=== PATIENT | male | born 1935 | race Caucasian/White ===

== ENCOUNTER 2016-09-06 22:50 | Emergency (ER) | payer MEDICARE, BC ==
[~2016-09-06] VITALS: Ht 182.9 cm; Wt 99.8 kg
[2016-09-06 23:27] VITALS: BP 175/77
--- NOTE | 2016-09-06 23:27 | PHYS DOC ---
Adult General Chief Complaint Chief Complaint: FINGER INJURY HPI HPI Patient is a 81 year old female presents to the emergency department with complaints of left index finger injury. Patient reports that he was removing the side from a wheelchair when his finger caught in the pin and he avulsed the distal tip of the left index finger. His reports this occurred approximately 5 hours prior to arrival in the emergency department. She states they had difficulty controlling the bleeding. On arrival to the emergency department there is no evidence of bleeding. Review of Systems Review of Systems Musculoskeletal: Denies back pain or joint pain [] Integument: Avulsion distal tip index finger Current Medications Current Medications Current Medications Medications (Trade) Dose Ordered Sig/Rodney Start Time Stop Time Status Last Admin Dose Admin Cellulose 1 each 1X ONCE 09/06/16 23:45 09/06/16 23:46 Allergies Allergies Allergies Coded Allergies Type Severity Reaction Last Updated Verified Penicillins Allergy Intermediate 09/06/16 Yes tetracycline Allergy Intermediate 09/06/16 Yes Physical Exam Physical Exam Constitutional: Well developed, well nourished, no acute distress, non-toxic appearance. [] Skin: Left index finger, distal tip avulsed, no nail involvement.. There Is no active bleeding time exam. Patient has full range of motion without difficulty. Current Patient Data Vital Signs Vital Signs Date Time Temp Pulse Resp B/P (MAP) Pulse Ox O2 Delivery O2 Flow Rate FiO2 09/06/16 23:27 103 18 97 Room Air EKG EKG [] Radiology/Procedures Radiology/Procedures [] Course & Med Decision Making Course & Med Decision Making Left index finger x-ray reviewed by Dr. Neri Rao, emergency room physician. No acute changes. Pertinent Labs and Imaging studies reviewed. (See chart for details) Immunization up-to-date Left index finger wound cleansed with normal saline. Surgicel seal applied with tube gauze. Patient tolerated procedure well. [] Dragon Disclaimer Dragon Disclaimer This electronic medical record was generated, in whole or in part, using a voice recognition dictation system. Departure Departure Impression: Primary Impression: Avulsion of soft tissue Disposition: 01 HOME, SELF-CARE Condition: STABLE Referrals: KELLE ROTH Jr, MD (PCP) Patient Instructions: Laceration Care, Adult Scripts Acetaminophen With Codeine (TYLENOL WITH CODEINE #3 TABLET) 1 Each Tablet 1 TAB PO PRN Q6HRS Y for PAIN, #12 TAB Prov: SHANKAR,JUANCARLOS J [employer] 09/06/16 Cephalexin (KEFLEX) 500 Mg Capsule 1 CAP PO TID, #21 CAP Prov: JUANCARLOS CHAPARRO APRN 09/06/16 JUANCARLOS CHAPARRO APRN Sep 06, 2016 23:27
[2016-09-06] MEDS ORDERED: ACET-704 PO (23:36)
[2016-09-06] MEDS ORDERED: CEPH-264 PO (23:36)
[2016-09-06] MEDS ORDERED: SURGICEL HEMOSTAT 2X3 EACH. TP ONE (23:45)
--- NOTE | 2016-09-07 07:57 | RAD ---
Examination: 3 views of the left index finger History: History of evolution to the distal tip of the second digit Comparison: None available Findings: There is moderate degenerative changes identified in the metacarpophalangeal joint, interphalangeal joint of the second digit. There is minimal soft tissue avulsion of the distal tip of the second digit. No acute osseous findings. Impression: 1. No acute osseous findings. 2. Moderate degenerative changes metacarpophalangeal joint, interphalangeal joint of the second digit. 3. Minimal soft tissue with avulsion of the distal tip of the second digit.
== END 2016-09-06 23:58 | disposition home or self-care (01) ==
LOC: ER 22:50
DX: S61.301A Unspecified open wound of left index finger with damage to nail, initial encounter (principal); Z88.1 Allergy status to other antibiotic agents; Z88.0 Allergy status to penicillin; W23.0XXA Caught, crushed, jammed, or pinched between moving objects, initial encounter; Y93.89 Activity, other specified; Y99.8 Other external cause status; Y92.89 Other specified places as the place of occurrence of the external cause
CPT/HCPCS: 73140; 82962; 99284-25

== ENCOUNTER 2018-04-28 10:07 | Outpatient (CLI) | payer MEDICARE, BC ==
[2018-04-28] VITALS (7 sets, daily range): BP systolic 95–136; BP diastolic 42–61
[~2018-04-28] VITALS: Ht 182.9 cm; Wt 90.7 kg
[~2018-04-28 10:07] MED LIST: ACET-704 PO; ACET325T9 PO; APIX5TAB PO; ASPI325T11 PO; CEPH-264 PO; DOFE500C PO; FURO-69 PO; INSU100I11 SQ; INSU100I17 SQ; INSU300I SQ; LOSA-73 PO; METO25TA4 PO; OXYC5CAP PO; POLY17PO29 PO; POTA20TA82 PO; SIMV40TA3 PO; TAMS0.4C97 PO; TRAM50TA PO
[2018-04-28 10:48] LABS: BASO % 1 % (0-3); EOS # 0.3 x10^3/uL (0.0-0.7); EOS % 5 % (0-3); HEMATOCRIT 34.6 % (39.0-53.0); HEMOGLOBIN 11.2 g/dL (13.0-17.5); LYMPH # 0.8 x10^3/uL (1.0-4.8); LYMPH % 13 % (24-48); MEAN CORPUSCULAR HEMOGLOBIN 28 pg (25-35); MEAN CORPUSCULAR HGB CONC 33 g/dL (31-37); MEAN CORPUSCULAR VOLUME 88 fL (79-100); MONO # 0.6 x10^3/uL (0.0-1.1); MONO % 11 % (0-9); NEUT # 4.2 x10^3uL (1.8-7.7); NEUT % 70 % (31-73); PLATELET COUNT 207 x10^3/uL (140-400); RED BLOOD COUNT 3.95 x10^6/uL (4.30-5.70); RED CELL DISTRIBUTION WIDTH 16.5 % (11.5-14.5); WHITE BLOOD COUNT 5.9 x10^3/uL (4.0-11.0)
[2018-04-28 10:58] LABS: PROTHROMBIN TIME PATIENT 14.7 SEC (11.7-14.0)
[2018-04-28 11:14] LABS: CALCIUM 9.6 mg/dL (8.5-10.1); CREATININE 1.6 mg/dL (0.7-1.3); GFR 41.4
[2018-04-28 11:20] LABS: ALBUMIN 3.4 g/dL (3.4-5.0); ALBUMIN/GLOBULIN RATIO 0.9 (1.0-1.7); TOTAL BILIRUBIN 0.5 mg/dL (0.2-1.0); TOTAL PROTEIN 7.4 g/dL (6.4-8.2)
--- NOTE | 2018-04-28 13:36 | NUR ---
Discharge Note: NINA CHAPMAN Discharge instructions and discharge home medications reviewed with Patient and a copy given. All questions have been answered and understanding verbalized. The following instructions and handouts were given: thoracentesis Discontinued lines and drains: intact. Patient discharged to Home or Self Care withSpousevia Crutches/Walker
--- NOTE | 2018-04-28 13:39 | RAD ---
Ultrasound-guided left-sided thoracentesis 04/28/2018 1:35 PM Indication: Postoperative left-sided PLEURAL EFFUSION Procedure: Informed consent was obtained. A timeout procedure was performed. Sonographic evaluation of the left chest was performed demonstrating moderate pleural effusion. The left posterior chest was prepped and draped in sterile fashion. 1% lidocaine without epinephrine was administered for local anesthesia. Real-time ultrasonographic guidance was used in passing a 5 [place] catheter into the left pleural space. 1.8 5 L of serosanguineous pleural fluid was removed. The catheter was removed and pressure held to achieve hemostasis. A sterile dressing was applied. No immediate complications were identified. The patient tolerated the procedure well. Impression: Left sided ultrasound-guided thoracentesis
--- NOTE | 2018-04-28 13:46 | RAD ---
EXAM: Chest, single view. HISTORY: Thoracentesis. COMPARISON: 04/24/2018 FINDINGS: A frontal view of the chest is obtained. There has been interval decrease in a now small left pleural effusion status post thoracentesis. There is no pneumothorax. There is left basilar atelectasis. The possibility of superimposed left lower lobe interstitial infiltrate is not excluded. There is a suspected stable trace right pleural effusion with right basilar atelectasis. There is evidence of prior median sternotomy. The heart is normal in size. IMPRESSION: 1. Decrease in a now small left pleural effusion status post thoracentesis. There is no pneumothorax. 2. Stable trace right pleural effusion and bilateral basilar atelectasis. The possibility of left lower lobe interstitial infiltrate is not excluded. Electronically signed by: Judith Palencia MD (04/28/2018 1:44 PM) [facility]
== END 2018-04-28 13:38 | disposition home or self-care (01) ==
LOC: INTRAD 10:07
PROVIDERS: ATTEND Thoracic Surgery (Cardiothoracic Vascular Surgery)
DX: J90 Pleural effusion, not elsewhere classified (principal); Z88.0 Allergy status to penicillin; Z88.1 Allergy status to other antibiotic agents; J98.11 Atelectasis
CPT/HCPCS: 32555; 36415; 71045; 80053; 85025; 85610

== ENCOUNTER → 2018-05-15 | Outpatient (CLI) | payer MEDICARE, BC ==
[2018-04-28 12:53] VITALS: BP 119/58
[~2018-05-15] MED LIST changes: +ASPI-630 PO; +FURO40TA4 PO
--- NOTE | 2018-05-15 14:27 | RAD ---
Chest, 2 views, 05/15/2018: HISTORY: Pleural effusion Comparison is made to a study from 04/28/2018. Sternal wires are present. The heart appears to be within normal limits in size. There is calcific plaquing the aorta. There is a moderate volume of left-sided pleural fluid which has increased since the previous study. There is underlying left basilar atelectasis. The right lung is clear. No right-sided pleural fluid is evident. Scattered degenerative changes are present in the spine. IMPRESSION: Increasing moderate-sized left pleural effusion. Electronically signed by: Seun Matthews MD (05/15/2018 2:24 PM) [facility]
== END | disposition home or self-care (01) ==
LOC: RAD 13:30
PROVIDERS: ATTEND Thoracic Surgery (Cardiothoracic Vascular Surgery)
DX: J90 Pleural effusion, not elsewhere classified (principal); J98.11 Atelectasis; M47.899 Other spondylosis, site unspecified
CPT/HCPCS: 71046

== ENCOUNTER 2018-05-18 08:20 | Outpatient (CLI) | payer MEDICARE, BC ==
[~2018-05-18] VITALS: Ht 182.9 cm; Wt 90.7 kg
[2018-05-18] VITALS (9 sets, daily range): BP systolic 95–123; BP diastolic 39–56
[~2018-05-18 08:20] MED LIST changes: -ASPI-630 PO; -FURO40TA4 PO
[2018-05-18 08:47] LABS: BASO # 0.1 x10^3/uL (0.0-0.2); BASO % 1 % (0-3); EOS # 0.3 x10^3/uL (0.0-0.7); EOS % 5 % (0-3); HEMATOCRIT 34.1 % (39.0-53.0); HEMOGLOBIN 10.8 g/dL (13.0-17.5); LYMPH % 17 % (24-48); MEAN CORPUSCULAR HEMOGLOBIN 27 pg (25-35); MEAN CORPUSCULAR HGB CONC 32 g/dL (31-37); MEAN CORPUSCULAR VOLUME 86 fL (79-100); MONO # 0.6 x10^3/uL (0.0-1.1); MONO % 11 % (0-9); NEUT # 3.9 x10^3uL (1.8-7.7); NEUT % 66 % (31-73); PLATELET COUNT 237 x10^3/uL (140-400); RED BLOOD COUNT 3.99 x10^6/uL (4.30-5.70); RED CELL DISTRIBUTION WIDTH 16.2 % (11.5-14.5); WHITE BLOOD COUNT 5.9 x10^3/uL (4.0-11.0)
[2018-05-18 08:56] LABS: PROTHROMBIN TIME PATIENT 14.7 SEC (11.7-14.0)
[2018-05-18] MEDS ORDERED: ASPI-630 PO (09:05)
--- NOTE | 2018-05-18 12:01 | NUR ---
Discharge Note: NINA CHAPMAN Discharge instructions and discharge home medications reviewed with Patient and a copy given. All questions have been answered and understanding verbalized. The following instructions and handouts were given: follow up with Dr. Bridges and Elliott Carbone tomorrlexie (05/19/18). Discontinued lines and drains: intact. Patient discharged to Home or Self Care with Spouse via Ambulated
--- NOTE | 2018-05-18 13:55 | RAD ---
Ultrasound-guided left-sided thoracentesis 05/18/2018 1:52 PM Indication: Left pleural effusion Procedure: Informed consent was obtained. A timeout procedure was performed. Sonographic evaluation of the left chest was performed demonstrating moderate pleural effusion. The left posterior chest was prepped and draped in sterile fashion. 1% lidocaine without epinephrine was administered for local anesthesia. Real-time ultrasonographic guidance was used in passing a 5 [place] catheter into the left pleural space. 1.9 L of serosanguineous pleural fluid was removed. Samples of fluid were sent to the lab for further evaluation per ordering physician request. The catheter was removed and pressure held to achieve hemostasis. A sterile dressing was applied. No immediate complications were identified. The patient tolerated the procedure well. Impression: Left sided ultrasound-guided thoracentesis
--- NOTE | 2018-05-18 16:35 | RAD ---
CHEST AP ONLY Clinical indications: POST THORACENTESIS COMPARISON: May 15, 2018. Findings: There is been significant decrease in size of left-sided pleural effusion which is small to moderate-sized in today's exam. No pneumothorax is evident. There is improved aeration of the left lung base. The heart size, pulmonary vasculature, mediastinum and both randal are stable. Impression: Decrease in size of left-sided pleural effusion after thoracentesis. No pneumothorax. Electronically signed by: Chinmay Weinberg MD (05/18/2018 4:32 PM) [place] [id number]
== END 2018-05-18 12:03 | disposition home or self-care (01) ==
LOC: INTRAD 08:20
PROVIDERS: ATTEND Thoracic Surgery (Cardiothoracic Vascular Surgery)
DX: J90 Pleural effusion, not elsewhere classified (principal); Z88.0 Allergy status to penicillin; Z88.1 Allergy status to other antibiotic agents; Z79.01 Long term (current) use of anticoagulants
CPT/HCPCS: 32555; 36415; 71045; 85025; 85610; 85730

== ENCOUNTER → 2018-06-05 | Outpatient (CLI) | payer MEDICARE, BC ==
[2018-05-18 11:30] VITALS: BP 108/48
[~2018-06-05] MED LIST changes: +ASPI-630 PO; +FURO40TA4 PO
--- NOTE | 2018-06-05 16:35 | RAD ---
Chest, 2 views, 06/05/2018: HISTORY: Follow-up pleural effusion Comparison is made to a study from 05/18/2018. There has been a previous median sternotomy. The heart size is normal. There is calcific plaquing of the aorta. No pulmonary infiltrate is seen. There is unchanged pleural thickening inferolaterally on the left compatible with residual pleural fluid versus scarring. No right-sided pleural fluid is seen. IMPRESSION: 1. Unchanged inferolateral pleural thickening on the left compatible with a small residual pleural effusion. 2. No new abnormality is detected. Electronically signed by: Seun Matthews MD (06/05/2018 4:32 PM) [facility]
== END | disposition home or self-care (01) ==
LOC: RAD 12:46
PROVIDERS: ATTEND Thoracic Surgery (Cardiothoracic Vascular Surgery)
DX: J90 Pleural effusion, not elsewhere classified (principal)
CPT/HCPCS: 71046

== ENCOUNTER 2018-07-14 09:59 | Outpatient (CLI) | payer MEDICARE, BC ==
[~2018-07-14] VITALS: Ht 182.9 cm; Wt 91.6 kg
[~2018-07-14 09:59] MED LIST changes: -FURO40TA4 PO
[2018-07-14 10:41] LABS: BASO % 1 % (0-3); EOS # 0.1 x10^3/uL (0.0-0.7); EOS % 2 % (0-3); HEMATOCRIT 36.5 % (39.0-53.0); LYMPH % 19 % (24-48); MEAN CORPUSCULAR HEMOGLOBIN 27 pg (25-35); MEAN CORPUSCULAR HGB CONC 33 g/dL (31-37); MEAN CORPUSCULAR VOLUME 82 fL (79-100); MONO # 0.6 x10^3/uL (0.0-1.1); MONO % 11 % (0-9); NEUT # 3.7 x10^3uL (1.8-7.7); NEUT % 67 % (31-73); PLATELET COUNT 153 x10^3/uL (140-400); RED BLOOD COUNT 4.43 x10^6/uL (4.30-5.70); RED CELL DISTRIBUTION WIDTH 18.9 % (11.5-14.5); WHITE BLOOD COUNT 5.5 x10^3/uL (4.0-11.0)
[2018-07-14 10:53] LABS: PROTHROMBIN TIME PATIENT 13.5 SEC (11.7-14.0)
[2018-07-14 10:55] VITALS: BP 95/59
[2018-07-14] MEDS ORDERED: FURO40TA4 PO (11:04)
[2018-07-14] MEDS ORDERED: METO25TA4 PO (11:04)
[2018-07-14 12:41] VITALS: BP 138/63
--- NOTE | 2018-07-14 13:15 | NUR ---
Pt return from vascular lab at 1300. Report received from Melissa HIGHTOWER. No fluid to drain from patient. Pt dressed and walked to outpatient entrance with family.
--- NOTE | 2018-07-15 07:56 | RAD ---
Limited ultrasound evaluation of the left chest 07/14/2018 Indication: Thoracentesis Discussion: Limited ultrasound evaluation of left chest demonstrates only scant pleural fluid, not readily amenable to thoracentesis. The amount of fluid appears to be significantly less than on most recent comparison imaging. Thoracentesis was therefore not performed. No other focal sonographic abnormality is seen. Impression: Only trace pleural effusion is seen. Thoracentesis was not performed
== END 2018-07-14 13:15 | disposition home or self-care (01) ==
LOC: INTRAD 09:59
PROVIDERS: ATTEND Internal Medicine Cardiovascular Disease
DX: J90 Pleural effusion, not elsewhere classified (principal); Z88.0 Allergy status to penicillin; Z88.1 Allergy status to other antibiotic agents
CPT/HCPCS: 36415; 76882; 85025; 85610

== ENCOUNTER → 2019-02-11 | Outpatient (CLI) | payer MEDICARE, BC ==
[2018-10-18 03:15] VITALS: BP 177/73
[~2019-02-11] MED LIST changes: +FURO40TA4 PO; +POTA20TA4 PO; -POTA20TA82 PO; +SIMV40TA18 PO; -SIMV40TA3 PO
--- NOTE | 2019-02-15 08:58 | RAD ---
MR#: [id number] Date of Study: 02/11/2019 Ordering Physician: BORA ADDISON, Referring Physician: BORA ADDISON Tech: Galina Valenzuela, UNRULY, RVT, RTR APPROVED REPORT Patient Location: OUT-PATIENT Risk Factors Hypertension Hyperlipidemia Diabetes CAD VELOCITY AND DOPPLER WAVEFORM ANALYSIS RIGHT cm/secWaveformSeverity LEFT cm/secWaveform Severity pCFA 208.2pCFA 179.3 Prof Fem Art. 117.8Prof Fem Art. 89.8 Fem Art Prox. 130.4Fem Art Prox. 118.5 Fem Art Mid. 151.4Fem Art Mid. 119.4 Fem Art Dist. 92.5Fem Art Dist. 152.7 Pop Art(AK) 109.4Pop Art(AK) 137.0 DEPUTY CHIEF MAGISTRATE Prox. 164.5PTA Prox. 57.8 DEPUTY CHIEF MAGISTRATE Dist. 99.1PTA Dist. 125.6 Per Art Prox. 76.8Per Art Prox. 113.2 PHI Prox. 164.1ATA Prox. 100.5 DPA 18DPA 33 Findings Grayscale images the bilateral lower extremity arterial vessels reveal mild diffuse plaque. No high-g rade focal obstruction is noted on the grayscale images The velocities are mostly triphasic and biphasic with three-vessel runoff below the knee. No focal obstruction is noted but mildly elevated bilateral common femoral artery velocities likely d ue to a high flow state. The right anterior tibial artery has elevated velocities suggestive of moderate disease. Probable sma ll vessel disease at the level of the dorsalis pedis artery bilaterally. Critical Notification Critical Value: No <Conclusion> 1. No significant high-grade obstruction above the knee with three-vessel runoff below the knee bilat elana. 2. 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 Signed by : Mateo Ballard, Electronically Approved : 02/15/2019 08:57:48
== END | disposition home or self-care (01) ==
LOC: US 15:24
PROVIDERS: ATTEND Internal Medicine Cardiovascular Disease
DX: I70.293 Other atherosclerosis of native arteries of extremities, bilateral legs (principal); I25.10 Atherosclerotic heart disease of native coronary artery without angina pectoris; I10 Essential (primary) hypertension; E78.5 Hyperlipidemia, unspecified; E11.9 Type 2 diabetes mellitus without complications
CPT/HCPCS: 93925

== ENCOUNTER → 2019-09-23 | Outpatient (CLI) | payer MEDICARE, BC ==
[2018-10-18 03:15] VITALS: BP 177/73
--- NOTE | 2019-09-23 17:25 | CARD ---
MR#: [id number] Date of Study: 09/23/2019 Ordering Physician: BORA ADDISON, Referring Physician: BORA ADDISON, Tech: Galina Rodriguez APPROVED REPORT EXAM: Two-dimensional and M-mode echocardiogram with Doppler and color Doppler. Other Information Quality : AverageHR: 55bpm INDICATION Cardiac Disease: CAD Surgery/Intervention CABG: Date: 2017 Site: [place] RISK FACTORS Hypertension Diabetes 2D DIMENSIONS RVDd3.2 (2.9-3.5cm)Left Atrium(2D)4.5 (1.6-4.0cm) IVSd1.2 (0.7-1.1cm)Aortic Root(2D)3.5 (2.0-3.7cm) LVDd5.9 (3.9-5.9cm)LVOT Diameter2.1 (1.8-2.4cm) PWd1.1 (0.7-1.1cm)LVDs3.9 (2.5-4.0cm) FS (%) 34.1 %SV107.4 ml Aortic Valve AoV Peak Kalia.163.4cm/sAoV VTI37.5cm AO Peak GR.10.7mmHgLVOT Peak Kalia.83.6cm/s LVOT VTI 19.94cmAO Mean GR.6mmHg MELLO (VMAX)1.48bs4IUL (VTI)1.90cm2 Mitral Valve MV E Seylorwb46.0cm/sMV DECEL ROOR558wh MV A Tayvmsif78.6cm/sMV E Mean Gr.1mmHg MV YYS44eoJ/A Ratio2.3 MVA (PHT)2.83cm2 TDI E/Lateral E'10.5E/Medial E'20.4 Pulmonary Valve PV Peak Ntflznqq29.4cm/sPV Peak Grad.2mmHg Tricuspid Valve TR P. Lnktugsp699pe/sRAP EFIGHMDT8soNg TR Peak Gr.15jcJlLTWX32vhMd LEFT VENTRICLE The left ventricle is normal size. There is normal left ventricular wall thickness. The left ventricu lar systolic function is normal and the ejection fraction is within normal range. The Ejection Fracti on is 50-55%. There is normal LV segmental wall motion. The left ventricular diastolic function and f illing is normal for age. RIGHT VENTRICLE The right ventricle is normal size. There is normal right ventricular wall thickness. The right ventr icular systolic function is normal. ATRIA The left atrium is borderline dilated. The right atrium is mildly dilated. The interatrial septum is intact with no evidence for an atrial septal defect or patent foramen ovale as noted on 2-D or Dopple r imaging. AORTIC VALVE The aortic valve is thickened but opens well. Doppler and Color Flow revealed trace aortic regurgitat ion. There is no significant aortic valvular stenosis. Calculated aortic valve area is 2.01 cm2 with maximum pressure gradient of 11 mmHg and mean pressure gradient of 6 mmHg. MITRAL VALVE The mitral valve is normal in structure and function. There is no evidence of mitral valve prolapse. There is no mitral valve stenosis. Doppler and Color-flow revealed trace mitral regurgitation. TRICUSPID VALVE The tricuspid valve is normal in structure and function. Doppler and Color Flow revealed trace tricus pid regurgitation with an estimated PAP of 33 mmHg. There is no tricuspid valve stenosis. PULMONIC VALVE The pulmonic valve is not well visualized. Doppler and Color Flow revealed no pulmonic valvular regur gitation. GREAT VESSELS The aortic root is normal in size. The IVC was not visualized. PERICARDIAL EFFUSION There is no evidence of significant pericardial effusion. Critical Notification Critical Value: No <Conclusion> The left ventricle is normal size. The left ventricular systolic function is normal and the ejection fraction is within normal range. The Ejection Fraction is 50-55%. There is normal LV segmental wall motion. There is no significant aortic valvular stenosis. Doppler and Color Flow revealed trace aortic regurgitation. Doppler and Color-flow revealed trace mitral regurgitation. Doppler and Color Flow revealed trace tricuspid regurgitation with an estimated PAP of 33 mmHg. Signed by : Lino Massey MD Electronically Approved : 09/23/2019 17:25:20
== END | disposition home or self-care (01) ==
LOC: ECHO 12:39
PROVIDERS: ATTEND Internal Medicine Cardiovascular Disease
DX: I25.10 Atherosclerotic heart disease of native coronary artery without angina pectoris (principal)
CPT/HCPCS: 93306

== ENCOUNTER → 2020-10-04 | Outpatient (CLI) | payer MEDICARE, BC ==
[2018-10-18 03:15] VITALS: BP 177/73
--- NOTE | 2020-10-04 16:57 | CARD ---
MR#: [id number] Date of Study: 10/04/2020 Ordering Physician: BORA ADDISON, Referring Physician: BORA ADDISON Tech: Tasia Rai [facility] APPROVED REPORT EXAM: Two-dimensional and M-mode echocardiogram with Doppler and color Doppler. Other Information Quality : AverageHR: 48bpm Rhythm : NSRTechnically limited study due to body habitus. INDICATION Cardiac Disease: CAD RISK FACTORS Hypertension Hyperlipidemia 2D DIMENSIONS RVDd3.9 (2.9-3.5cm)Left Atrium(2D)4.5 (1.6-4.0cm) IVSd1.1 (0.7-1.1cm)LVDd5.5 (3.9-5.9cm) PWd1.2 (0.7-1.1cm)LVDs4.1 (2.5-4.0cm) FS (%) 26.2 %SV75.2 ml LVEF(%)50.8 (>50%) Aortic Valve AoV Peak Kalia.172.1cm/sAoV VTI49.7cm AO Peak GR.11.8mmHgLVOT Peak Kalia.89.4cm/s AO Mean GR.6mmHg Mitral Valve MV E Ckuuchxy63.0cm/sMV DECEL FLOY711ie MV A Zwgpjowz19.1cm/sE/A Ratio2.3 Tricuspid Valve TR P. Cgmngbxw925lj/sTR Peak Gr.33mmHg LEFT VENTRICLE The left ventricle is normal size. There is borderline to mild concentric left ventricular hypertroph y. The left ventricular systolic function is mildly decreased. EF 45-50% The apical lateral wall is m oderately hypokinetic. Remainder of the LV is mildly hypokinetic. Tissue Doppler imaging reveals mode rate left ventricular diastolic dysfunction. RIGHT VENTRICLE The right ventricle is normal size. There is normal right ventricular wall thickness. The right ventr icular systolic function is normal. ATRIA The left atrium size is normal. The right atrium is mildly dilated. The interatrial septum is intact with no evidence for an atrial septal defect or patent foramen ovale as noted on 2-D or Doppler imagi ng. AORTIC VALVE The aortic valve is calcified but opens well. Doppler and Color Flow revealed two small seperate jets of mild aortic regurgitation. There is no significant aortic valvular stenosis. MITRAL VALVE The mitral valve is normal in structure and function. There is no evidence of mitral valve prolapse. There is no mitral valve stenosis. Doppler and Color-flow revealed mild mitral regurgitation. TRICUSPID VALVE The tricuspid valve is normal in structure and function. Doppler and Color Flow revealed mild tricusp id regurgitation. Estimated PAP 38 mmHg. There is no tricuspid valve stenosis. PULMONIC VALVE Doppler and Color Flow revealed no pulmonic valvular regurgitation. There is no pulmonic valvular judit nosis. GREAT VESSELS The aortic root is normal in size. The ascending aorta is normal in size. The IVC is normal in size a nd collapses >50% with inspiration. PERICARDIAL EFFUSION There is no evidence of significant pericardial effusion. Critical Notification Critical Value: No <Conclusion> The left ventricular systolic function is mildly decreased. EF 45-50% The apical lateral wall is moderately hypokinetic. Remainder of the LV is mildly hypokinetic. Doppler and Color Flow revealed two small seperate jets of mild aortic regurgitation. Doppler and Color Flow revealed mild tricuspid regurgitation. Estimated PAP 38 mmHg. Signed by : Mateo Ballard, Electronically Approved : 10/04/2020 16:57:14
== END ==
LOC: ECHO 13:39
PROVIDERS: ATTEND Internal Medicine Cardiovascular Disease
DX: I08.3 Combined rheumatic disorders of mitral, aortic and tricuspid valves (principal); I25.10 Atherosclerotic heart disease of native coronary artery without angina pectoris
CPT/HCPCS: 93306